=== PATIENT | female | born 1955 | race Caucasian/White ===

== ENCOUNTER → 2017-04-04 | Outpatient (CLI) | payer BC ==
[~2017-04-04] MED LIST: ATOR10TA PO; ESTR0.5T PO; SIMV10TA3 PO; SOLI5TAB PO
--- NOTE | 2017-04-04 17:26 | KCIC ---
Bilateral digital screening mammograms with CAD: HISTORY Routine screening COMPARISON Comparison is made to previous examinations dated back to 04/16/2014. FINDINGS Breast density category C. The skin and nipples show no abnormalities. No abnormal lymph nodes are seen in the axilla. The breast parenchyma shows heterogeneous density. There are no dominant masses, suspicious calcifications or architectural distortions. IMPRESSION No evidence of malignancy. Recommend routine annual mammographic screening. This study was interpreted with the benefit of Computerized Aided Detection (CAD). Mammography is not 100% sensitive in detecting breast cancer. Therefore, a self breast exam and a clinical breast exam are very important. A negative mammogram does not negate a clinically suspicious finding and should not result in a delay in biopsying a clinically suspicious abnormality. BI-RADS category 2: Benign. This patient's information has been entered into a reminder system for the patient to be notified with the results of this examination and a target date for her next mammograms. Electronically signed by: Kecia Cortez MD (April 04, 2017 17:24:35)
== END | disposition home or self-care (01) ==
LOC: KCIC MAMMO 15:53
PROVIDERS: ATTEND Family Medicine
DX: Z12.31 Encounter for screening mammogram for malignant neoplasm of breast (principal)
CPT/HCPCS: G0202; 77067

== ENCOUNTER → 2018-04-18 | Outpatient (CLI) | payer BC | END | disposition home or self-care (01) | LOC: KCIC MAMMO 09:46 | DX: Z12.31 Encounter for screening mammogram for malignant neoplasm of breast (principal) | CPT/HCPCS: 77063; 77067 ==

== ENCOUNTER → 2019-04-21 | Outpatient (CLI) | payer BC ==
[~2019-04-21] MED LIST changes: -SOLI5TAB PO; +SOLI5TAB2 PO
--- NOTE | 2019-04-22 15:32 | KCIC ---
Bilateral digital screening mammograms with 3-D tomosynthesis: Reason for examination: Routine screening. Comparison is made to previous studies dated 04/18/2018 and 04/04/2017. Bilateral mammograms in CC and oblique projections were obtained with 2-D imaging and 3-D tomosynthesis imaging on a Siemens Inspiration unit and reviewed on the workstation. Interpretation was made with the benefit of CAD. The skin and nipples show no abnormalities. No abnormal axillary lymph nodes are seen. The breast parenchyma is heterogeneously dense. (Breast density: Category C.) There continue to be multiple small nodular densities throughout both breasts which have not changed. There is however a nodular density located in the 10:00 B position of the right breast measuring approximately 1.7 cm in greatest dimension which appears to be slightly larger than on previous exams. Further evaluation with ultrasound is recommended. Impression: Continued presence of multiple small nodular densities throughout both breasts. The 1.7 cm nodule at the 10:00 B position of the right breast however does appear to be larger than on previous exam. Further evaluation with ultrasound is recommended. Your patient's mammogram demonstrates that she has dense breast tissue (breast density category C or D), which could hide abnormalities, and if she has other risk factors for breast cancer that have been identified, she might benefit from supplemental screening tests that may be suggested by you as her ordering physician. Dense breast tissue, in and of itself, is a relatively common condition. Therefore, this information is not provided to cause undue concern, but rather to raise your awareness and to promote discussion with your patient regarding the presence of other risk factors, in addition to dense breast tissue. Your patient's mammography results will be sent to her. BI-RAD Category 0: Incomplete. Needs additional imaging evaluation. "Our facility is accredited by the [employer] Mammography [employer]." This patient's information has been entered into a reminder system for the patient to be notified with the results of her examination and a target date for the next mammogram. Electronically signed by: Suzette Cortez MD (04/22/2019 3:29 PM) [id number]
== END | disposition home or self-care (01) ==
LOC: KCIC MAMMO 09:32
PROVIDERS: ATTEND Family Medicine
DX: Z12.31 Encounter for screening mammogram for malignant neoplasm of breast (principal)
CPT/HCPCS: 77063; 77067

== ENCOUNTER → 2019-05-02 | Outpatient (CLI) | payer BC ==
--- NOTE | 2019-05-02 10:56 | KCIC ---
BREAST RIGHT Clinical Indication: Abnormal screening mammogram. Comparison: Bilateral mammogram April 21, 2019 and dating back to 2016. Technique: Real-time ultrasound imaging of the upper outer right breast is performed. Findings: Likely corresponding to the nodular asymmetry on mammogram at the 10:00 position 6 cm from the nipple, there is a 10 x 3 mm hypoechoic parallel, well-circumscribed lesion. Finding is less well seen radially. Image with vocal fremitus does not confirm the finding is solid. There is a 4 mm complicated cyst 10:30 position 4 cm from the nipple. Dense heterogeneous tissue is noted at the 12:00 B position. No abnormal axillary lymph node. IMPRESSION: Likely corresponding to the nodular asymmetry on mammogram there is an oval-shaped hypoechoic lesion at the 10:00 position 6 cm from the nipple. Finding may be a fibroadenoma. The nodular asymmetry on mammogram is similar to 2016. Recommend six-month follow-up right breast ultrasound. BI-RADS Category 3, probably benign. Electronically signed by: Nikko Hernandez MD (05/02/2019 10:54 AM) [id number]
== END | disposition home or self-care (01) ==
LOC: KCIC US 09:04
PROVIDERS: ATTEND Family Medicine
DX: N60.01 Solitary cyst of right breast (principal)
CPT/HCPCS: 76641

== ENCOUNTER → 2019-10-22 | Outpatient (CLI) | payer BC, OTHER ==
[~2019-10-22] MED LIST changes: +SIMV10TA15 PO; -SIMV10TA3 PO
--- NOTE | 2019-10-22 09:21 | KCIC ---
Right breast ultrasound: Reason for examination: Follow-up nodules. Comparison is made to previous study dated 05/02/2019. Right breast ultrasound including the axillary region of the right breast was performed. There continues to be a 1.4 cm hypoechoic circumscribed nodule in parallel orientation at the 10:00 position 6 cm from the nipple which is stable. There continues to be a small 3.4 mm hypoechoic fibrocystic type lesion at the 10:30 position 4 cm from the nipple which is stable. There are no new cystic or solid nodules seen. No abnormal appearing lymph nodes are seen in the axilla. IMPRESSION: No change in the nodular density seen at the 10:00 and 10:30 positions. Recommend 6 month follow-up ultrasound which can be performed at the time of bilateral mammograms. BI-RADS Category 3: Probably Benign. "Our facility is accredited by the [employer] Mammography Program." This patient's information has been entered into a reminder system for the patient to be notified with the results of her examination and a target date for the next mammogram. Electronically signed by: Suzette Cortez MD (10/22/2019 9:19 AM) [facility]
== END | disposition home or self-care (01) ==
LOC: KCIC US 07:51
PROVIDERS: ATTEND Family Medicine
DX: N63.11 Unspecified lump in the right breast, upper outer quadrant (principal)
CPT/HCPCS: 76641

== ENCOUNTER → 2020-06-01 | Outpatient (CLI) | payer MEDICARE ==
--- NOTE | 2020-06-01 15:25 | KCIC ---
Bilateral digital diagnostic mammogram with tomosynthesis and right resultant Reason for examination: Follow-up of probably benign right breast upper cystic change and mammographic asymmetries Comparison is made to previous study dated Right breast ultrasound September 22, 2019 and May 02, 2019. Mammogram April 21, 2019 and priors Routine CC and MLO digital views obtained. Interpretation was made with the benefit of CAD. Mammogram: The skin and nipples show no abnormalities. No abnormal lymph nodes are seen. The breast parenchyma is scattered fibroglandular elements. (Breast density: Category B.) There are no suspicious masses, suspicious calcifications or architectural distortions. Nodular glandular asymmetries at the right upper outer breast are stable. Nodularity bilateral fibroglandular tissue is stable. ULTRASOUND: Right breast demonstrates suspicious abnormality. Asymmetric glandular tissue corresponding to hypoechoic nonshadowing fibroadenoma right breast 10:00 position is stable measuring 1.2 cm back to April 2019. 4 mm cyst at the 10:30 position stable back to April 2019. No axillary adenopathy. Impression: Stable probably benign right upper outer breast mammographic nodular asymmetries corresponding to stable probably benign fibrocystic lesions and presumed fibroadenoma. Attention on follow-up bilateral mammogram and right breast ultrasound in one year is advised to document continued stability. BI-RADS Category 3: Probably benign. "Our facility is accredited by the [employer] Mammography Program." This patient's information has been entered into a reminder system for the patient to be notified with the results of her examination and a target date for the next mammogram. Electronically signed by: Sukhwinder Diallo MD (06/01/2020 3:22 PM) [email or web address]
== END | disposition home or self-care (01) ==
LOC: KCIC MAMMO 13:38
PROVIDERS: ATTEND Family Medicine
DX: R92.2 Inconclusive mammogram (principal); N63.11 Unspecified lump in the right breast, upper outer quadrant
CPT/HCPCS: 76641; 77066; G0279; 77062

== ENCOUNTER → 2020-07-13 | Outpatient (CLI) | payer MEDICARE ==
--- NOTE | 2020-07-13 13:36 | CARD ---
MR#: [id number] Date of Study: 07/13/2020 Ordering Physician: HOLLY ESCAMILLA, Referring Physician: HOLLY ESCAMILLA, Tech: Terri Vieira [facility] [place] APPROVED REPORT EXAM: Two-dimensional and M-mode echocardiogram with Doppler and color Doppler. Other Information Quality : Good INDICATION Palpitations 2D DIMENSIONS RVDd2.7 (2.9-3.5cm)Left Atrium(2D)3.3 (1.6-4.0cm) IVSd0.8 (0.7-1.1cm)Aortic Root(2D)2.7 (2.0-3.7cm) LVDd4.2 (3.9-5.9cm)LVOT Diameter1.9 (1.8-2.4cm) PWd0.9 (0.7-1.1cm)LVDs2.3 (2.5-4.0cm) FS (%) 30.0 %SV61.9 ml LVEF(%)60.0 (>50%) Aortic Valve AoV Peak Darius.164.6cm/sAoV VTI28.1cm AO Peak GR.10.8mmHgLVOT Peak Darius.112.1cm/s LVOT VTI 22.42cmAO Mean GR.5mmHg DANYELL (VMAX)1.38ps9IEU (VTI)2.24cm2 Mitral Valve MV E Fmjqrgyh91.0cm/sMV DECEL TAEZ745cz MV A Ugxxuuoo49.6cm/sMV NMZ36am E/A Ratio1.1MVA (PHT)3.79cm2 TDI E/Lateral E'13.0E/Medial E'14.7 Pulmonary Vein S1 Mlpeacmg07.8cm/sD2 Azmebjuc17.2cm/s LEFT VENTRICLE The left ventricle is normal size. There is normal left ventricular wall thickness. The left ventricu lar systolic function is normal. The Ejection Fraction is 55-60%. There is normal LV segmental wall m otion. RIGHT VENTRICLE The right ventricle is normal size. The right ventricular systolic function is normal. ATRIA The left atrium size is normal. The right atrium size is normal. The interatrial septum is intact wit h no evidence for an atrial septal defect or patent foramen ovale as noted on 2-D or Doppler imaging. AORTIC VALVE The aortic valve is normal in structure and function. Doppler and Color Flow revealed no significant aortic regurgitation. There is no significant aortic valvular stenosis. MITRAL VALVE The mitral valve is normal in structure and function. There is no evidence of mitral valve prolapse. There is no mitral valve stenosis. Doppler and Color-flow revealed trace mitral regurgitation. TRICUSPID VALVE The tricuspid valve is normal in structure and function. Doppler and Color Flow revealed no tricuspid valve regurgitation noted. There is no tricuspid valve stenosis. PULMONIC VALVE The pulmonic valve is not well visualized. Doppler and Color Flow revealed trace pulmonic valvular re gurgitation. There is no pulmonic valvular stenosis. GREAT VESSELS The aortic root is normal in size. The ascending aorta is normal in size. The IVC is normal in size a nd collapses >50% with inspiration. PERICARDIAL EFFUSION There is no evidence of significant pericardial effusion. Critical Notification Critical Value: No <Conclusion> The left ventricular systolic function is normal. The Ejection Fraction is 55-60%. There is normal LV segmental wall motion. Trace mitral regurgitation. There is no evidence of significant pericardial effusion. Signed by : Hernesto Freitas, Electronically Approved : 07/13/2020 13:36:31
== END ==
LOC: ECHO 09:50
PROVIDERS: ATTEND Internal Medicine Cardiovascular Disease
DX: R00.2 Palpitations (principal)
CPT/HCPCS: 93306

== ENCOUNTER → 2021-06-07 | Outpatient (CLI) | payer MEDICARE ==
--- NOTE | 2021-06-07 09:34 | KCIC ---
2-D and 3-D (tomosynthesis) diagnostic bilateral digital mammogram and targeted right breast ultrasou nd History: Follow-up of probably benign right breast masses at 10:00 and 10:30. Technique: Bilateral 2-D and 3d digital tomographic views were done AD - computer aided detection wa s utilized. Comparison: Mammograms from 06/01/2020, 04/21/2019, and the 04/18/2018. Right breast ultrasounds from , 05/02/2019. FINDINGS: MAMMOGRAM Breast Tissue Density C : The breast tissue is heterogeneously dense. Scattered fibroglandular eleme nts may obscure underlying pathology. Again seen are multiple bilateral oval circumscribed masses which have not changed significantly. The re are no new suspicious masses, microcalcifications or areas of architectural distortion. FINDINGS TARGETED RIGHT BREAST ULTRASOUND: The areas of concern on previous ultrasound were imaged. There is mixed hyper and hypoechoic lesion i n the 10:00 position, 6 cm from the nipple. This measures 0.8 cm antiradial by 0.8 cm radial by 0.3 c m AP. It has decreased in size since the May 2020 ultrasound. This likely due to collapsed inflamed cyst or other benign lesion. Again seen is a cyst in the 10:30 position, 4 cm from the nipple, which contains at least one calcifi cation and measures 5 mm. This is stable. Impression: No suspicious findings. There are multiple bilateral oval circumscribed masses which are benign findi ng. Ultrasound changes benign findings which are stable or smaller 10:00 and 10:30 position of the ri ght breast. Assessment: BI-RADS Category 2: Benign findings. Recommendation: Routine annual mammograms. The patient will receive a letter with the results in the mail. Your mammogram demonstrates that you have dense breast tissue, which could hide abnormalities, and if you have other risk factors for breast cancer that have been identified, you might benefit from supp lemental screening tests that may be suggested by your ordering physician. Dense breast tissue, in a nd of itself, is a relatively common condition. This information is not provided to cause undue conc anish, but rather to raise your awareness and to promote discussion with your physician regarding the p resence of other risk factors, in addition to dense breast tissue. A report of your mammography resul ts will be sent to you and your physician. You should contact your physician if you have any questio ns or concerns regarding this report. Patient information is entered into the reminder system with a target due date for the next screening mammogram. The patient will receive a reminder. Electronically signed by: Socorro Guerrero MD (06/07/2021 9:32 AM) [email or web address]
== END ==
LOC: KCIC MAMMO 08:11
PROVIDERS: ATTEND Family Medicine
DX: N60.01 Solitary cyst of right breast (principal); N63.11 Unspecified lump in the right breast, upper outer quadrant; R92.2 Inconclusive mammogram; N64.89 Other specified disorders of breast
CPT/HCPCS: 76641; 77066; G0279; 77062

== ENCOUNTER → 2021-11-15 | Outpatient (CLI) | payer MEDICARE ==
--- NOTE | 2021-11-15 08:21 | KCIC ---
EXAM: DUAL ENERGY X-RAY ABSORPTIOMETRY (DEXA). HISTORY: Postmenopausal screening. FINDINGS: The lowest measured T-score is a 1.4 in the left hip, based on a bone mineral density of 0. 774 g/cm^2. Refer to the worksheets for full detail. There has been a 1.1 percent decrease in density of the left hip and 7.0 percent increase in density of the lumbar spine compared to a study performed 03/30/2016. IMPRESSION: 1. Low bone mass. Bone mineral density yields a T-score between -1.0 and -2.5. Fracture risk is incre ased. 2. FRAX report: Not calculated. METHODOLOGY: Dual energy x-ray absorptiometry was performed to measure bone mineral density. The foll owing analysis is based on the 2019 Official Positions of the International Society for Clinical Dens itometry: Measurements of the hips and the average of L1-L4 are preferred. When the spine and/or hip cannot be feasibly measured or interpreted, or in the setting of hyperparathyroidism, distal radial bone minera l density may be measured. The lumbar spine T-score is based on the average bone mineral density of L1-L4. In the setting of art ifact or anatomic abnormality, some lumbar levels may be excluded, and the remaining levels used for calculation. A single lumbar level is not used for diagnosis, and if only a single level is available for assessment, another anatomic site will be used to assign a diagnosis. The hip T-score is based on the bone mineral density measurement of the femoral neck or total proxima l femur of either side, whichever is lowest. Bilateral mean values are not used for diagnosis. The forearm T-score is derived from 33% of the distal radius of the nondominant forearm. Electronically signed by: Alcira So MD (11/15/2021 8:18 AM) [email or web address]
== END ==
LOC: KCIC DEXA 07:50
PROVIDERS: ATTEND Family Medicine
DX: M85.88 Other specified disorders of bone density and structure, other site (principal); Z78.0 Asymptomatic menopausal state
CPT/HCPCS: 77080

== ENCOUNTER → 2022-02-15 | Outpatient (CLI) | payer MEDICARE ==
--- NOTE | 2022-02-16 12:55 | RAD ---
MR#: [id number] Date of Study: 02/15/2022 Ordering Physician: HOLLY LUCIO, Referring Physician: ISIDRO SURESH Tech: KRISTIN Grey APPROVED REPORT Test Type: Exercise Stress Nurse/Tech: Barbara MCKEON Test Indications: Dyspnea Cardiac History: High cholesterol Medications: n/a Medical History: See EMR Resting ECG: SR Resting Heart Rate: 67 bpm Resting Blood Pressure: 145/75mmHg Pretest Chest Pain: None Nurse/Tech Notes Lungs CTA, No SOA. S1S2 heart tones. No chest pain. Stress Symptoms Fatigue. No chest pain, no SOA during exercise. POST EXERCISE Reason for Termination: Reached target heart rate Target HR: Yes Max HR: 149 bpm 114% of Maximum Predicted HR: 130 bpm Exercise duration: 4:50 min:sec, 2 Stage Exercise capacity: 7.0METs Max Blood Pressure: 167/66mmHg Blood Pressure response to exercise: Normal blood pressure response during stress. Heart Rate response to exercise: normal response Chest Pain: No. Arrhythmia: No. ST Change: No. INTERPRETATION Stress EKG Conclusion: No evidence of stress induced EKG changes. Imaging Protocol IMAGE PROTOCOL: Rest Tc-99m/stress Tc-99m 1 day Rest: Stress: Viability: Radiopharm.Tc99m DolryzwyhCd94j Sestamibi Dose10.1mCi 31mCi Duration 15min. 10min. Img Date 02/15/2022 02/15/2022 Inj-Img Pyix12ofb. 60min. Post-Injection Exercise: 1 minute Rest Admin Site:IV - Right AntecubitalAdministrator:AIDA Shane, ARRT (R)(N) Stress Admin Site: IV - Right AntecubitalAdministrator: KRISTIN Grey STRESS DATA End Diast. Vol.55.0mlAv. Heart Rate84.0bpm End Syst. Vol.4.0mlCO Index BSA0.0L/min Myocardial Thjw607.0gEject. Atdifzkc45.0% Stress Rates Pk. Fill Rate5.26EDV/secLVtime Pk. Fill 194.55msec Pk. Empty Rate6.09ESV/secLVtime Pk. Gjroh173.77msec 1/3 Pk. Fill1.29EDV/sec Stress Scores Regional WT2.00Summed WT4.00 Regional WM0.00Summed WM0.00 The rest and stress images show normal perfusion, normal contraction and thickening. LV Perf. Quant 17 Seg. SSS0.00 17 Seg. SRS0.00 17 Seg. SDS0.00 Stress Defect Extent (% LAD)0.00Rest Defect Extent (% LAD)0.00Rev. Defect Extent (% LAD)0.00 Stress Defect Extent (% LCX) 0.00Rest Defect Extent (% LCX)0.00Rev. Defect Extent (% LCX)0.00 Stress Defect Extent (% RCA)0.00Rest Defect Extent (% RCA)0.00Rev. Defect Extent (% RCA)0.00 Stress Defect Extent (% YANE)0.00Rest Defect Extent (% YANE)0.00Rev. Defect Extent (% YANE)0.00 Other Information Quality:Average Risk Assessment: Low Risk Conclusion 1. No evidence of EKG changes with stress testing. 2. Normal perfusion at stress/rest. 3. Low risk study. 4. EF > 60%. Signed by : Holly Lucio, Electronically Approved : 02/16/2022 12:55:10
== END ==
LOC: NM 07:52
PROVIDERS: ATTEND Internal Medicine Cardiovascular Disease
DX: R06.00 Dyspnea, unspecified (principal)
CPT/HCPCS: 78452; 93017; A9500

== ENCOUNTER 2022-02-19 22:59 | Emergency (ER) | payer MEDICARE ==
[~2022-02-19] VITALS: Ht 152.4 cm; Wt 72.7 kg
--- NOTE | 2022-02-19 23:51 | PHYS DOC ---
Past Medical History Past Medical History: High Cholesterol Past Surgical History: No Surgical History Smoking Status: Never Smoker Alcohol Use: Occasionally Additional Information: DRINKS A BEER OCCASIONALLY General Adult EDM: Chief Complaint: HYPERTENSION HPI: HPI: Patient is a 66-year-old female who presents today with high blood pressure. Patient states that over the last 2 months she has been having some difficulties with palpitations, shortness of air, and intermediate high blood pressure readings. She is being seen by Dr. Lucio, she states that she had a stress test done last Sunday, and she has a appointment to have a loop recorder placed on Sunday of this week, for evaluation of her symptoms. Today she noticed around 530 that she was having a slight headache she took her blood pressure and it was 170 systolically. Patient then continue to check her blood pressure 4-5 times since that time and she continue to get high readings in the 170s systolically with her heart rate in the 100s, she presents today for evaluation and treatment of those high readings. Currently her blood pressure is 184/85, patient says she has a slight headache, but denies chest pain, shortness of air at this time. I did review patient's stress test results from February 152021 which was normal. Review of Systems: Review of Systems: Constitutional: Denies fever or chills. [] Eyes: Denies change in visual acuity. [] HENT: Denies nasal congestion or sore throat. [] Respiratory: Denies cough or shortness of breath. [] Cardiovascular: High blood pressure readings denies chest pain or edema. [] GI: Denies abdominal pain, nausea, vomiting, bloody stools or diarrhea. [] : Denies dysuria. [] Musculoskeletal: Denies back pain or joint pain. [] Integument: Denies rash. [] Neurologic: Headache denies focal weakness or sensory changes. [] Endocrine: Denies polyuria or polydipsia. [] Lymphatic: Denies swollen glands. [] Psychiatric: Denies depression or anxiety. [] Heart Score: C/O Chest Pain: No Risk Factors: Risk Factors: DM, Current or recent (<one month) smoker, HTN, HLP, family history of CAD, obesity. Risk Scores: Score 0 - 3: 2.5% MACE over next 6 weeks - Discharge Home Score 4 - 6: 20.3% MACE over next 6 weeks - Admit for Clinical Observation Score 7 - 10: 72.7% MACE over next 6 weeks - Early Invasive Strategies Current Medications: Current Medications Medications (Trade) Dose Ordered Sig/Jessica Route PRN Reason Start Time Stop Time Status Last Admin Dose Admin Amlodipine Besylate (Norvasc) 5 mg 1X ONCE PO 02/19/22 23:45 02/19/22 23:48 DC 02/20/22 00:05 Allergies: Allergies: Allergies Coded Allergies Type Severity Reaction Last Updated Verified No Known Drug Allergies 02/19/22 No Physical Exam: PE: Constitutional: Well developed, well nourished, no acute distress, non-toxic appearance. [] HENT: Normocephalic, atraumatic, bilateral external ears normal, oropharynx moist, no oral exudates, nose normal. [] Eyes: PERRLA, EOMI, conjunctiva normal, no discharge. [] Neck: Normal range of motion, no tenderness, supple, no stridor. [] Cardiovascular:Heart rate regular rhythm, no murmur [] Lungs & Thorax: Bilateral breath sounds clear to auscultation [] Abdomen: Bowel sounds normal, soft, no tenderness, no masses, no pulsatile masses. [] Skin: Warm, dry, no erythema, no rash. [] Back: No tenderness, no CVA tenderness. [] Extremities: No tenderness, no cyanosis, no clubbing, ROM intact, no edema. [] Neurologic: Alert and oriented X 3, normal motor function, normal sensory function, no focal deficits noted. [] Psychologic: Affect normal, judgement normal, mood normal. [] Current Patient Data: Vital Signs: Vital Signs Date Time Temp Pulse Resp B/P (MAP) Pulse Ox O2 Delivery O2 Flow Rate FiO2 02/20/22 00:28 66 16 173/77 (109) 98 02/20/22 00:05 184/81 02/19/22 23:11 98.1 75 24 184/85 (118) 97 Room Air 98.1 Vital Signs Date Time Temp Pulse Resp B/P (MAP) Pulse Ox O2 Delivery O2 Flow Rate FiO2 02/19/22 23:11 98.1 75 24 184/85 (118) 97 Room Air 98.1 EKG: EKG: [] Radiology/Procedures: Radiology/Procedures: [PROCEDURE: MPI SPECT 1DAY REST&ST TREAD MR#: [id number] Date of Study: 02/15/2022 Ordering Physician: HOLLY LUCIO, Referring Physician: ISIDRO SURESH Tech: KRISTIN Grey APPROVED REPORT Test Type: Exercise Stress Nurse/Tech: Barbara MCKEON Test Indications: Dyspnea Cardiac History: High cholesterol Medications: n/a Medical History: See EMR Resting ECG: SR Resting Heart Rate: 67 bpm Resting Blood Pressure: 145/75mmHg Pretest Chest Pain: None Nurse/Tech Notes Lungs CTA, No SOA. S1S2 heart tones. No chest pain. Stress Symptoms Fatigue. No chest pain, no SOA during exercise. POST EXERCISE Reason for Termination: Reached target heart rate Target HR: Yes Max HR: 149 bpm 114% of Maximum Predicted HR: 130 bpm Exercise duration: 4:50 min:sec, 2 Stage Exercise capacity: 7.0METs Max Blood Pressure: 167/66mmHg Blood Pressure response to exercise: Normal blood pressure response during stress. Heart Rate response to exercise: normal response Chest Pain: No. Arrhythmia: No. ST Change: No. INTERPRETATION Stress EKG Conclusion: No evidence of stress induced EKG changes. Imaging Protocol IMAGE PROTOCOL: Rest Tc-99m/stress Tc-99m 1 day Rest: Stress: Viability: Radiopharm. Tc99m Sestamibi Tc99m Sestamibi Dose 10.1mCi 31mCi Duration 15min. 10min. Img Date 02/15/2022 02/15/2022 Inj-Img Time 60min. 60min. Post-Injection Exercise: 1 minute Rest Admin Site: IV - Right Antecubital Bank Officer: AIDA Shane ARRT (R)(N) Stress Admin Site: IV - Right Antecubital Bank Officer: KRISTIN Grey STRESS DATA End Diast. Vol. 55.0ml Av. Heart Rate 84.0bpm End Syst. Vol. 4.0ml CO Index BSA 0.0L/min Myocardial Mass 103.0g Eject. Fraction 93.0% Stress Rates Pk. Fill Rate 5.26EDV/sec LVtime Pk. Fill 194.55msec Pk. Empty Rate 6.09ESV/sec LVtime Pk. Eject 123.77msec 1/3 Pk. Fill 1.29EDV/sec Stress Scores Regional WT 2.00 Summed WT 4.00 Regional WM 0.00 Summed WM 0.00 The rest and stress images show normal perfusion, normal contraction and thickening. LV Perf. Quant 17 Seg. SSS 0.00 17 Seg. SRS 0.00 17 Seg. SDS 0.00 Stress Defect Extent (% LAD) 0.00 Rest Defect Extent (% LAD) 0.00 Rev. Defect Extent (% LAD) 0.00 Stress Defect Extent (% LCX) 0.00 Rest Defect Extent (% LCX) 0.00 Rev. Defect Extent (% LCX) 0.00 Stress Defect Extent (% RCA) 0.00 Rest Defect Extent (% RCA) 0.00 Rev. Defect Extent (% RCA) 0.00 Stress Defect Extent (% YANE) 0.00 Rest Defect Extent (% YANE) 0.00 Rev. Defect Extent (% YANE) 0.00 Other Information Quality:Average Risk Assessment: Low Risk Conclusion 1. No evidence of EKG changes with stress testing. 2. Normal perfusion at stress/rest. 3. Low risk study. 4. EF > 60%. Signed by : Holly Lucio, Electronically Approved : 02/16/2022 12:55:10 DICTATED and SIGNED BY: HOLLY LUCIO MD DATE: 02/15/22 1035] Course & Med Decision Making: Course & Med Decision Making Pertinent Labs and Imaging studies reviewed. (See chart for details) 2482 I did review this case with Dr Marlow, he recommanded that we treat patient with a low dose Norvasc and have patient follow up with Dr Lucio tomorrow for further management of elevated blood pressure. Patient is agreeable with the place of care. 0050 patient blood pressure is 163/94, patient again denies chest pain or shortness of breath at this time. Patient will be sent home to follow-up with Dr. Lucio's office in the morning by phone, patient was encouraged to return here to the emergency department for any chest pain, shortness of breath, any strokelike symptoms or any other concerns she may have. Patient and significant other at the bedside verbalized understanding this and are agreeable with plan of care. Dragon Disclaimer: Dragfarida Disclaimer: This electronic medical record was generated, in whole or in part, using a voice recognition dictation system. Departure Departure Impression: Primary Impression: Benign essential HTN Disposition: HOME / SELF CARE / HOMELESS Condition: STABLE Referrals: EMMANUEL ARTEAGA MD (PCP) Patient Instructions: Hypertension Additional Instructions: Follow-up with Dr. uLcio's office in the morning for further evaluation and management of your high blood pressure readings. You were given Norvasc 5 mg here in the emergency department Return to the emergency department if you have chest pain, shortness of breath, facial droop, slurred speech, double vision blurred vision, or headache that worsens FRANK MASON PROSPECT MANAGER Feb 19, 2022 23:51
[2022-02-20 00:51] VITALS: BP 163/94
== END 2022-02-20 01:11 | disposition home or self-care (01) ==
LOC: ER 22:59
DX: I10 Essential (primary) hypertension (principal); R51.9 Headache, unspecified; R00.2 Palpitations; E78.00 Pure hypercholesterolemia, unspecified
CPT/HCPCS: 99283

== ENCOUNTER → 2022-02-21 | Outpatient (CLI) | payer MEDICARE ==
[2022-02-20 00:51] VITALS: BP 163/94
--- NOTE | 2022-02-21 15:36 | CARD ---
MR#: [id number] Date of Study: 02/21/2022 Ordering Physician: DANAY FREITAS, Referring Physician: DANAY FREITAS, Tech: APPROVED REPORT PROCEDURE: Successful implantation of Medtronic reveal Linq loop recorder INDICATIONS: Recurrent palpitations of uncertain etiology PROCEDURE DETAILS: An informed consent was obtained from patient. Patient was brought to the procedure suite and her le ft chest and shoulder were prepped and draped in the usual fashion. 20 mL of 2% lidocaine was infilt rated into the skin and subcutaneous tissues for local anesthesia. An incision was made in the left third intercostal space 1 inch from midsternal line and using the introducer and deployer provided wi th the kit, a Medtronic reveal Linq loop recorder serial number [id number] was placed in the subcuta neous tissue. Hemostasis was secured. Patient tolerated the procedure well. There were no immediate complications. CONCLUSION: Successful implantation of Medtronic reveal Linq loop recorder to rule out any significant arrhythmia s as a cause of patient's recurrent palpitations Signed by : Danay Freitas, Electronically Approved : 02/21/2022 15:36:42
== END | disposition home or self-care (01) ==
LOC: LINQ 11:07
PROVIDERS: ATTEND Internal Medicine Cardiovascular Disease
DX: R00.2 Palpitations (principal); Z79.899 Other long term (current) drug therapy; Z72.89 Other problems related to lifestyle
CPT/HCPCS: 33285; C1764